=== PATIENT | female | born 1945 | race Caucasian/White ===

== ENCOUNTER → 2019-03-22 | Outpatient (CLI) | payer MEDICARE ==
--- NOTE | 2019-03-22 22:34 | MR ---
EXAMINATION TYPE: MR brain wo/w con DATE OF EXAM: 03/22/2019 COMPARISON: MRI brain May 18, 2012 and older studies. HISTORY: migraines, history of pineal gland cyst TECHNIQUE: Multiplanar, multisequence images of the brain and brainstem is performed without and with IV contras t, utilizing 7.5 mL intravenous Gadavist . FINDINGS: Diffusion weighted images demonstrate no evidence of a recent infarct or other diffusion ab normality. There is no worrisome extra-axial fluid collection. Stable mild ventricular and sulcal pr ominence. Some progression in scattered areas of T2 hyperintensity throughout the white matter bilate rally. Findings presume on basis of chronic small vessel ischemic change in patient of this age. Midline structures demonstrate normal morphology. Tiny cyst at level of the pineal gland measuring 2 mm less well seen on current study presumed stable. The craniocervical junction appears within normal limits. Post contrast images demonstrate no abnormal enhancement. The dural venous sinuses appear p atent. The visualized sinuses are clear and the globes are intact. IMPRESSION: Mild diffuse age-related cerebral atrophy with moderate chronic small vessel ischemic magdiel nge, latter has progressed from 2013 study.
== END | disposition home or self-care (01) ==
LOC: RADMRIMAIN 17:02
PROVIDERS: ATTEND Psychiatry & Neurology Neurology
DX: G31.1 Senile degeneration of brain, not elsewhere classified (principal); I67.82 Cerebral ischemia
CPT/HCPCS: 70553; A9585

== ENCOUNTER → 2024-08-16 | Outpatient (CLI) | payer MEDICARE ==
[2024-08-16 11:11] VITALS: BP 108/67; PULSE 69; RESP 18
--- NOTE | 2024-08-16 15:54 | P.PAINPG ---
PQRS Measure Charge Sheet Comment: HISTORY OF PRESENT ILLNESS: A 78 yr old female w at side as a referral from Dr Nathan Connor presents today w severe and chronic head and upper neck pain secondary to occipital neuralgia, cervicogenic MORROW for evaluation. Pt states pain level is provoked at 4-6 /10 in intensity, constant, localized in the upper neck, predominantly axial, sharp in character w occasional shooting pain towards the top of the head. Pain is provoked by rotation, hyperextension. Pain is alleviated by physician guided home stretches daily since Jun 2024, medications, manual massage, repositioning and rest . Discussed possible R frontal meningioma from MRI report and pt states she has a follow up appt w Dr Nathan Connor in September 2024. Urged pt to contact Dr Connor's office to verify her report is reviewed. PMH: OA, CAD PSH: Denies SH: Negative x3. . FH: Non contributory All: See list Medications include Tramadol REVIEW OF ORGAN SYSTEMS: CONSTITUTIONAL: No fevers or chills. No recent weight loss. NEUROLOGICAL: + numbness and tingling along the distal extremities. No seizure disorders or headaches. MUSCULOSKELETAL: + pain PSYCHIATRIC: Denies current depression or suicidal thoughts. Physical Examinations : Constitutional : Cooperative , not in acute distress . Neurologic : Cranial nerve II to XII intact. No focal neurological deficits. Psychiatric : alert & oriented x 3. Matching mood & appropriate affect. Judgment & insight intact. Musculoskeletal : Cervical Spine +BL EVA TTP Motor strength in the deltoid and biceps: Normal right side. Normal Left side Motor strength biceps and the wrist extensors: Normal right side . Normal left side Motor strength in the triceps muscle: Normal right side. Normal left side Deep tendon reflexes: Normal at the biceps. Normal at Brachioradialis. Normal at triceps Vertebral body tenderness to deep palpation over Cervical facet loading test: positive bilaterally Spurling test: positive bilaterally Neck distraction test: positive bilaterally Cristy sign: positive bilaterally Lumbar spine Motor strength lower extremities ,thigh and legs 5/5 Right side , 5/5 Left side Deep tendon reflexes : Normal Knee Jerk. Normal Ankle Jerk Vertebral body tenderness over Strickland Test positive Lumbar facet Loading Test: positive Right / positive Left Range of motion of the lumbar spine Flexion 30 degrees, extension 10 degrees Straight Leg Raise test: Left/ Right positive at degrees Brian test: positive right / positive left. Severe tenderness over the Sacroiliac joint on the Right / Left sides Gaenslen test: positive bilaterally Seated flexion test: positive bilaterally. Sacral spine : Severe tenderness over the Sacroiliac joint: right side / left side Range of motion: Flexion of the lumbar spine <60 degrees Range of motion: Extension of the lumbar spine <20 degrees Gaenslen's Test positive Brian test: positive right side / left side Thigh Thrust Test Sacral Thrust Test Imaging: MRI non contrast brain from 08/07/24 reviewed. Possible R frontal meningioma CT non contrat brain form 08/19/22 reviewed Assessment/ Plan : Occipital Neuralgia/ Cervicogenic MORROW Recommendation of . Risks, benefits of procedure discussed and patient verbalized understanding. Admits to anti- coagulant use or medical history of diabetes. Protocol for discontinuation/ continuation of medications jaleel procedure discussed. Minimal anesthesia provided, if clinically indicated, consisting of Versed and Fentanyl. All questions answered. I have spent greater than 30 minutes on patient care today. Dr Loo was available by phone for the evaluation of this patient. The time was used to review the medical records including relevant urine studies and Prescription history (MAPs), review of the available imaging, evaluation and examination of the patient, coordination of care with the medical staff and if applicable referring physicians, as well as creation of the medical record - Pain Location Head Pharmacological Interventions: Medication, Topical Medication Controlled Substance Measures - Controlled Substance Measures Is patient prescribed a controlled substance at discharge?: No
== END ==
LOC: PNWHC3 10:53
PROVIDERS: ATTEND Specialist
DX: M54.81 Occipital neuralgia (principal); G44.86 Cervicogenic headache
CPT/HCPCS: 99212

== ENCOUNTER 2024-10-03 11:34 | Day surgery (SDC) | payer MEDICARE ==
[2024-10-02 13:08] VITALS: BMI 26.6
[~2024-10-03 11:34] MED LIST: LACTATED RINGERS 1,000 ML IV SCH
[2024-10-03 12:08] VITALS: TEMP 97.3
[2024-10-03] MEDS ORDERED: methylPREDNISolone ACETATE 40 MG/ML 1 ML VIAL ONE (12:50)
[2024-10-03] MEDS ORDERED: ROPIVACAINE 5MG/ML 20ML VIAL ONE (12:50)
--- NOTE | 2024-10-03 13:02 | P.PCN ---
Description of Procedure: Preoperative diagnoses. Greater occipital neuralgia Postoperative diagnoses. Greater occipital neuralgia Procedure. Bilateral Greater occipital nerve block with local anesthetics and steroid. Anesthesia. Local infiltration of 1% lidocaine. Continuous pulse ox, EKG, blood pressure and verbal communication was maintained with the patient in the OR. . Estimated blood loss. Minimal. Procedure indication. The patient had a history of severe chronic neck pain ,and headache, diagnosed with occipital neuralgia.Exam was positive for severe tenderness over the occipital nerve, she will be a good candidate occipital nerve block, patient failed conservative management. Discussed with the patient the procedure, alternative, complications including infection, bleeding, nerve damage, aggravation of pain all of which could be permanent. Patient understands and QUESTIONS were answered. Procedure description. Patient was placed in the sitting position or table and the neck area was prepped and draped with a sterile fashion. At the junction of right sternocleidomastoid muscle with trapezius muscle close to right superior nucheal line was identified, occipital artery was palpated. Just medial to the occipital artery 25-gauge needle attached to a syringe was introduced. Then after negative aspiration for heme and CSF and there was no paresthesia during the injection, 1.5 ml of Robivacaine 0.5% and 1ml of 20 mg of Depo-Medrol injected total volume 2.5 mL after negative aspiration, the needle removed. Entire same procedure was repeated for the left Greater occipital nerve. The patient returned to supine position after the back was cleaned and a Band- Aid applied. Disposition. Patient tolerated the procedure well. No complication. Discharged home in stable condition.
[2024-10-03 13:03] VITALS: RESP 18
[2024-10-03 13:16] VITALS: BP 124/68; PULSE 62
== END 2024-10-03 13:23 | disposition home or self-care (01) ==
LOC: ORPAIN 11:34
PROVIDERS: ATTEND Pain Medicine Interventional Pain Medicine
DX: M54.81 Occipital neuralgia (principal); Z91.013 Allergy to seafood; Z88.8 Allergy status to other drugs, medicaments and biological substances
CPT/HCPCS: 64405; J2795; J1010

== ENCOUNTER → 2024-10-26 | Outpatient (CLI) | payer MEDICARE ==
[2024-10-26 11:07] VITALS: BP 108/72; PULSE 66; RESP 18; TEMP 97.9
--- NOTE | 2024-10-26 12:52 | P.PAINPG ---
PQRS Measure Charge Sheet Comment: HISTORY OF PRESENT ILLNESS: A 78 yr old female w at side presents today w severe and chronic head and upper neck pain secondary to occipital neuralgia, cervicogenic MORROW for evaluation s/p BL EVA #1. Pt states she experienced 80 % pain relief x 3 wks s/p procedure. Pt states pain level is provoked at 2 /10 in intensity, constant, localized in the upper neck, predominantly axial, sharp in character w occasional shooting pain towards the top of the head. Pain is provoked by rotation, hyperextension. Pain is alleviated by physician guided home stretches daily since Jun 2024, medications, manual massage, repositioning and rest . Discussed possible R frontal meningioma from MRI report and pt states she has a follow up appt w Dr Nathan Connor in September 2024. Urged pt to contact Dr Connor's office to verify her report is reviewed. Interventional procedures include BL EVA x1 (10/27) Medications include Tramadol REVIEW OF ORGAN SYSTEMS: CONSTITUTIONAL: No fevers or chills. No recent weight loss. NEUROLOGICAL: + numbness and tingling along the distal extremities. No seizure disorders or headaches. MUSCULOSKELETAL: + pain PSYCHIATRIC: Denies current depression or suicidal thoughts. Physical Examinations : Constitutional : Cooperative , not in acute distress . Neurologic : Cranial nerve II to XII intact. No focal neurological deficits. Psychiatric : alert & oriented x 3. Matching mood & appropriate affect. Judgment & insight intact. Musculoskeletal : Cervical Spine +BL EVA TTP Motor strength in the deltoid and biceps: Normal right side. Normal Left side Motor strength biceps and the wrist extensors: Normal right side . Normal left side Motor strength in the triceps muscle: Normal right side. Normal left side Deep tendon reflexes: Normal at the biceps. Normal at Brachioradialis. Normal at triceps Vertebral body tenderness to deep palpation over Cervical facet loading test: positive bilaterally Spurling test: positive bilaterally Neck distraction test: positive bilaterally Cristy sign: positive bilaterally Lumbar spine Motor strength lower extremities ,thigh and legs 5/5 Right side , 5/5 Left side Deep tendon reflexes : Normal Knee Jerk. Normal Ankle Jerk Vertebral body tenderness over Strickland Test positive Lumbar facet Loading Test: positive Right / positive Left Range of motion of the lumbar spine Flexion 30 degrees, extension 10 degrees Straight Leg Raise test: Left/ Right positive at degrees Brian test: positive right / positive left. Severe tenderness over the Sacroiliac joint on the Right / Left sides Gaenslen test: positive bilaterally Seated flexion test: positive bilaterally. Sacral spine : Severe tenderness over the Sacroiliac joint: right side / left side Range of motion: Flexion of the lumbar spine <60 degrees Range of motion: Extension of the lumbar spine <20 degrees Gaenslen's Test positive Brian test: positive right side / left side Thigh Thrust Test Sacral Thrust Test Imaging: MRI non contrast brain from 08/07/24 reviewed. Possible R frontal meningioma CT non contrat brain form 08/19/22 reviewed Assessment/ Plan : Occipital Neuralgia/ Cervicogenic MORROW Will manage residual pain and may RTC on an as needed basis. All questions answered. I have spent greater than 30 minutes on patient care today. Dr Loo was available by phone for the evaluation of this patient. The time was used to review the medical records including relevant urine studies and Prescription history (MAPs), review of the available imaging, evaluation and examination of the patient, coordination of care with the medical staff and if applicable referring physicians, as well as creation of the medical record - Pain Location Neck Pharmacological Interventions: Block PQRS Narrative: Hx Alcohol Use (MH) No Home Medications: Ambulatory Orders Ascorbic Acid [Vitamin C] 1,000 mg PO BID 10/02/24 Aspirin EC [Ecotrin Low Dose] 81 mg PO DAILY 10/02/24 Brain Support Vitamins 2 tab PO HS 10/02/24 Calcium Carbonate [Calcium] 1,200 mg PO MOWEFR 10/02/24 Cholecalciferol [Vitamin D3 (25 Mcg = 1000 Iu)] 25 mcg PO DAILY 10/02/24 Eletriptan Hydrobromide [Relpax] 40 mg PO DIRECTED PRN 10/02/24 Fish Oil/Dha/Epa [Fish Oil 1,200 mg Fish Oil] 1 each PO DAILY 10/02/24 Fluticasone Nasal [place] [Flonase Nasal [place]] 2 spray EA NOSTRIL DAILY 10/02/24 Gabapentin [Neurontin] 300 mg PO TID 10/02/24 Glucosa Jarvis 2Kcl/Chondroitin Jarvis [Glucosamine-Chondroitin Cap] 1 each PO DAILY 10/02/24 Meclizine [Antivert] 25 mg PO BID 10/02/24 Montelukast [Singulair] 10 mg PO HS 10/02/24 Nortriptyline HCl 75 mg PO HS 10/02/24 Omeprazole [PriLOSEC] 20 mg PO HS 10/02/24 Simvastatin [Zocor] 40 mg PO HS 10/02/24 Turmeric Root Extract [Turmeric] 500 mg PO DAILY 10/02/24 lisinopriL [Prinivil] 20 mg PO DAILY 10/02/24 traMADol HCL 100 mg PO BID 10/02/24 Controlled Substance Measures - Controlled Substance Measures Is patient prescribed a controlled substance at discharge?: No
== END ==
LOC: PNWHC3 10:50
PROVIDERS: ATTEND Specialist
DX: M54.81 Occipital neuralgia (principal); G44.86 Cervicogenic headache; Z88.0 Allergy status to penicillin; Z91.041 Radiographic dye allergy status
CPT/HCPCS: 99211